=== PATIENT | female | born 1930 | race Caucasian/White ===

== ENCOUNTER 2020-10-13 23:11 | Emergency (ER) | payer MEDICARE, OTHER ==
[~2020-10-13 23:11] MED LIST: ALDACTONE 25MG25 MG PO; ANUSOL HC SUPP1 SUPP PR; AZITHROMYCIN500 MG PO; CEFUROXIME500 MG PO; COLACE100 MG PO; COZAAR100 MG PO; COZAAR25 MG PO; HYDROCODON-ACE1 EAC4 PO; JANUVIA100 MG PO; K-DUR TAB 20 M20 MEQ PO; LASIX40 MG PO; LEVOFLOXACIN250 MG PO; LEVOTHYROXINE125 MCG PO; LEVOTHYROXINE150 MCG PO; LIPITOR40 MG PO; NORCO 5-325 TA1 EACH PO; OMNICEF 300 MG300 MG PO; ST. JOSEPH ASPI81 M1 PO
[2020-10-13 23:30] LABS: HEMOGLOBIN 12.9 gm/dl (12.3-15.3); RED BLOOD COUNT 4.22 M/UL (4.00-5.10); WHITE BLOOD COUNT 6.9 K/UL (4.5-11.0)
[2020-10-14] MEDS ORDERED: MACROBID 100 M100 MG PO (04:02)
[2021-03-21] MEDS ORDERED: BUMETANIDE2 MG PO (01:29)
[2021-03-21] MEDS ORDERED: DEPAKOTE SPRIN125 M1 PO (01:30)
[2021-03-21] MEDS ORDERED: CHRONULAC20 GM/30 M PO (01:33)
[2021-03-21] MEDS ORDERED: MELATONIN3 MG PO (01:34)
[2021-03-21] MEDS ORDERED: REMERON 15 MG T15 MG PO (01:35)
[2021-03-21] MEDS ORDERED: ZAROXOLYN/DIUL2.5 MG PO (01:39)
[2021-03-21] MEDS ORDERED: HUMALOG100 UNIT/3 SC ×2 (01:45→01:48)
[2021-03-21] MEDS ORDERED: LANTUS SOL100 UNIT/1 SC (01:46)
[2021-03-21] MEDS ORDERED: SODIUM CHLORIDE4 M1 NEB (01:47)
[2021-03-21] MEDS ORDERED: ALDACTONE 25MG25 MG PO (11:39)
[2021-03-21] MEDS ORDERED: JUVEN PACKET1 EACH PO (11:39)
[2021-03-24] MEDS ORDERED: HYDROCODON-ACE1 EAC4 PO (09:00)
[2021-03-24] MEDS ORDERED: DIVALPROEX SOD125 MG PO (09:00)
[2021-03-25] MEDS ORDERED: LEVOTHYROXINE150 MCG PO (14:51)
[2021-03-26] MEDS ORDERED: SYNTHROID125 MCG PO (13:37)
== END 2020-10-14 05:02 | disposition home or self-care (01) ==
LOC: ER1 23:11
PROVIDERS: Physician Assistant
DX: N39.0 Urinary tract infection, site not specified (principal); K31.89 Other diseases of stomach and duodenum; E11.9 Type 2 diabetes mellitus without complications; I10 Essential (primary) hypertension; G30.9 Alzheimer's disease, unspecified; F02.81 Dementia in other diseases classified elsewhere, unspecified severity, with behavioral disturbance; Z87.19 Personal history of other diseases of the digestive system; Z88.0 Allergy status to penicillin
CPT/HCPCS: 73502; 80053; 81001; 83690; 85025; 87086; 96374; 96375; 99284; J2270; J2405; J7030